=== PATIENT | female | born 1945 | race Caucasian/White ===

== ENCOUNTER 2017-07-05 15:31 | Emergency (ER) | payer OTHER ==
[~2017-07-05] VITALS: Ht 160 cm; Wt 64.0 kg
[2017-07-05 17:07] LABS: CARBON DIOXIDE (BICARBONATE) 29.1 MEQ/L (20-31); MCH 29.5 PG (29.0-34.0); MCHC 32.5 G/DL (30.0-36.0); MCV 90.7 FL (83-99); MEAN PLAT.VOLUME 9.2 uM^3 (9.5-12.4); PLATELET COUNT 202 K/uL (156-360); RBC DIS.WIDTH-SD 46.2 % (39-53); RED BLOOD COUNT 3.53 M/uL (3.80-5.20)
[2017-07-05 17:15] LABS: CHLORIDE 107 mEq/L (99-109); POTASSIUM 4.6 mEq/L (3.7-5.4); SODIUM 140 mEq/L (136-147)
[2017-07-05 17:16] LABS: GLUCOSE 100 mg/dL (70-99)
[2017-07-05 17:18] LABS: ANION GAP 11 MEQ/L (2-14)
[2017-07-05 17:20] LABS: GFR ESTIMATE (CALCULATED) 25 mL/min/
[2017-07-05 17:21] LABS: UREA NITROGEN (BUN) 27 mg/dL (9-23)
[2017-07-05 17:27] LABS: TROP-I INTERPRETATION NEGATIVE; TROPONIN-I < 0.01 ng/mL (0.0-0.30)
[2017-07-05 19:07] VITALS: BP 150/80
== END 2017-07-05 19:09 | disposition left against medical advice (07) ==
LOC: EME 15:31
PROVIDERS: Emergency Medicine
DX: I10 Essential (primary) hypertension (principal); R07.89 Other chest pain; Z53.20 Procedure and treatment not carried out because of patient's decision for unspecified reasons; F17.200 Nicotine dependence, unspecified, uncomplicated
CPT/HCPCS: 80048; 82803; 83605; 83880; 84484; 85027; 87040; 99281; 99283

== ENCOUNTER 2018-02-10 07:56 | Day surgery (SDC) | payer OTHER ==
[~2018-02-10] VITALS: Ht 154.9 cm; Wt 65.8 kg
[~2018-02-10 07:56] MED LIST: ASPIR-LOW81 MG PO; CLONIDINE HCL0.1 MG PO; HYDRALAZINE HCL50 MG PO; LABETALOL HCL200 MG PO; TRAMADOL HCL50 MG PO; VITAMIN B-12500 MC5 SL; VITAMIN D31000 UNI2 PO
== END 2018-02-10 16:43 | disposition home or self-care (01) ==
LOC: CATH 07:56
DX: I25.10 Atherosclerotic heart disease of native coronary artery without angina pectoris (principal); I25.84 Coronary atherosclerosis due to calcified coronary lesion; I10 Essential (primary) hypertension; I65.29 Occlusion and stenosis of unspecified carotid artery; Z87.891 Personal history of nicotine dependence; I34.0 Nonrheumatic mitral (valve) insufficiency; E78.2 Mixed hyperlipidemia; I71.2 Thoracic aortic aneurysm, without rupture; Z98.1 Arthrodesis status; Z79.82 Long term (current) use of aspirin
CPT/HCPCS: C1769; C1887; J1644; J2250; J3010; J7040

== ENCOUNTER 2018-03-16 02:34 | Emergency (ER) | payer OTHER ==
[~2018-03-16] VITALS: Ht 154.9 cm; Wt 67.0 kg
[2018-03-16 03:30] LABS: APPEARANCE CLEAR ((CLEAR)); BILIRUBIN NEGATIVE; BLOOD NEGATIVE; COLOR YELLOW ((YELLOW)); GLUCOSE (STRIP) NEGATIVE; KETONES NEGATIVE; LEUKOCYTES NEGATIVE; NITRITE NEGATIVE; PROTEIN (STRIP) NEGATIVE; SPECIFIC GRAVITY 1.014 (1.000-1.030); UROBILINOGEN 0.2 MG/DL (0.2-1.0)
[2018-03-16 03:51] LABS: BASOPHIL (%) 0.2 % (0-1); EOSINOPHIL COUNT 0.4 K/uL (0-0.3); HEMATOCRIT 24.8 % (36.0-46.0); HEMOGLOBIN 8.1 G/DL (11.9-15.5); IMMATURE GRANULOCYTE (%) 0.4 % (0.0-0.7); LYMPHOCYTE (%) 10.5 % (15-42); LYMPHOCYTE COUNT 1.4 K/uL (1.0-2.8); MCH 28.8 PG (29.0-34.0); MCHC 32.7 G/DL (30.0-36.0); MCV 88.3 FL (83-99); MONOCYTE (%) 6.6 % (3-12); MONOCYTE COUNT 0.9 K/uL (0-0.8); NEUTROPHIL (%) 79.3 % (45-76); NEUTROPHIL COUNT 10.7 K/uL (1.8-6.4); PLATELET COUNT 134 K/uL (156-360); RBC DIS.WIDTH-CV 14.6 % (11.8-14.6); RBC DIS.WIDTH-SD 47.1 % (39-53); RED BLOOD COUNT 2.81 M/uL (3.80-5.20); WHITE BLOOD COUNT 13.5 K/uL (4.1-10.2)
[2018-03-16 03:57] LABS: INTER. NORMALIZED RATIO 1.2
[2018-03-16 04:00] LABS: ALBUMIN 3.9 g/dL (3.2-4.8); CHLORIDE 104 mEq/L (99-109); POTASSIUM 3.6 mEq/L (3.7-5.4); SODIUM 137 mEq/L (136-147)
[2018-03-16 04:02] LABS: GLUCOSE 118 mg/dL (70-99)
[2018-03-16 04:04] LABS: TOTAL BILIRUBIN 0.8 mg/dL (0.0-1.0)
[2018-03-16 04:06] LABS: ALKALINE PHOSPHATASE 61 IU/L (3-129); CREATININE 2.2 mg/dL (0.6-1.3); GFR ESTIMATE (CALCULATED) 23 mL/min/
[2018-03-16 04:07] LABS: UREA NITROGEN (BUN) 35 mg/dL (9-23)
[2018-03-16 04:08] LABS: AST (GOT) 26 IU/L (2-34)
[2018-03-16 04:09] LABS: ALT (GPT) 12 IU/L (3-49); LIPASE 19 U/L (1.0-51.0)
[2018-03-16 08:06] VITALS: BP 156/76
== END 2018-03-16 08:18 | disposition short-term general hospital (02) ==
LOC: EME 02:34
PROVIDERS: Emergency Medicine
DX: I71.4 Abdominal aortic aneurysm, without rupture (principal); I16.1 Hypertensive emergency; I12.9 Hypertensive chronic kidney disease with stage 1 through stage 4 chronic kidney disease, or unspecified chronic kidney disease; N18.9 Chronic kidney disease, unspecified; I73.9 Peripheral vascular disease, unspecified; I25.10 Atherosclerotic heart disease of native coronary artery without angina pectoris; Z98.890 Other specified postprocedural states; Z95.5 Presence of coronary angioplasty implant and graft; Z79.82 Long term (current) use of aspirin; Z87.891 Personal history of nicotine dependence; Z90.49 Acquired absence of other specified parts of digestive tract; Z87.39 Personal history of other diseases of the musculoskeletal system and connective tissue
CPT/HCPCS: 74176; 80053; 81003; 83605; 83690; 85025; 85610; 86850; 86900; 86901; 86920; 93005; 99281; 99285; J0360; J2270; J2405; J3010

== ENCOUNTER 2018-04-07 03:36 | Inpatient (IN) | payer OTHER ==
[~2018-04-07] VITALS: Ht 154.9 cm; Wt 72.0 kg
[~2018-04-07 03:36] MED LIST changes: +AMLODIPINE BESYL5 MG PO; +ATORVASTATIN CA80 MG PO; +BUSPAR5 MG PO; +CALCITRIOL0.25 MCG PO; +CLOPIDOGREL75 MG PO; +PROTONIX40 MG PO
[2018-04-07 04:01] LABS: MCH 29.9 PG (29.0-34.0); MCHC 33.1 G/DL (30.0-36.0); PLATELET COUNT 141 K/uL (156-360); RBC DIS.WIDTH-CV 16.7 % (11.8-14.6); RBC DIS.WIDTH-SD 55.6 % (39-53); WHITE BLOOD COUNT 6.8 K/uL (4.1-10.2)
[2018-04-07 04:02] LABS: HEMOGLOBIN 9.6 G/DL (11.9-15.5); MCV 90.3 FL (83-99); RED BLOOD COUNT 3.21 M/uL (3.80-5.20)
[2018-04-07 04:11] LABS: CHLORIDE 107 mEq/L (99-109); POTASSIUM 3.1 mEq/L (3.7-5.4); SODIUM 140 mEq/L (136-147)
[2018-04-07 04:12] LABS: GLUCOSE 119 mg/dL (70-99)
[2018-04-07 04:16] LABS: CREATININE 2.7 mg/dL (0.6-1.3); GFR ESTIMATE (CALCULATED) 18 mL/min/
[2018-04-07 04:17] LABS: UREA NITROGEN (BUN) 42 mg/dL (9-23)
[2018-04-07 04:25] LABS: TROP-I INTERPRETATION NEGATIVE; TROPONIN-I 0.04 ng/mL (0.0-0.30)
[2018-04-07] MEDS ORDERED: HYGROTON25 MG PO (06:18)
[2018-04-07] MEDS ORDERED: ROXICODONE5 MG PO (06:19)
[2018-04-07 09:41] VITALS: BP 210/84
[2018-04-07 11:05] LABS: TROP-I INTERPRETATION NEGATIVE; TROPONIN-I 0.04 ng/mL (0.0-0.30)
[2018-04-07 11:15] VITALS: BP 179/77
[2018-04-07 14:45] VITALS: BP 183/79
[2018-04-07 16:21] LABS: TROP-I INTERPRETATION NEGATIVE; TROPONIN-I 0.04 ng/mL (0.0-0.30)
[2018-04-07 17:59] VITALS: BP 136/64
[2018-04-07 20:00] VITALS: BP 128/56
[2018-04-07 22:21] LABS: TROP-I INTERPRETATION NEGATIVE; TROPONIN-I 0.05 ng/mL (0.0-0.30)
[2018-04-08 01:02] VITALS: BP 123/58
[2018-04-08 04:59] VITALS: BP 114/55
[2018-04-08 05:16] LABS: BASOPHIL (%) 0.9 % (0-1); BASOPHIL COUNT 0.1 K/uL (0-0.1); EOSINOPHIL COUNT 0.3 K/uL (0-0.3); HEMATOCRIT 27.2 % (36.0-46.0); HEMOGLOBIN 8.7 G/DL (11.9-15.5); IMMATURE GRANULOCYTE (%) 0.7 % (0.0-0.7); LYMPHOCYTE (%) 20.6 % (15-42); LYMPHOCYTE COUNT 1.2 K/uL (1.0-2.8); MCV 90.7 FL (83-99); MONOCYTE (%) 7.9 % (3-12); MONOCYTE COUNT 0.4 K/uL (0-0.8); NEUTROPHIL (%) 64.9 % (45-76); NEUTROPHIL COUNT 3.6 K/uL (1.8-6.4); PLATELET COUNT 135 K/uL (156-360); RBC DIS.WIDTH-CV 16.8 % (11.8-14.6); WHITE BLOOD COUNT 5.6 K/uL (4.1-10.2)
[2018-04-08 05:36] LABS: ALBUMIN 3.4 G/DL (3.2-4.8); ALKALINE PHOSPHATASE 64 IU/L (3-129); ALT (GPT) 8 IU/L (3-49); AST (GOT) 15 IU/L (2-34); CHLORIDE 106 MEQ/L (99-109); CREATININE 2.9 MG/DL (0.6-1.3); GFR ESTIMATE (CALCULATED) 17 mL/min/; GLUCOSE 116 mg/dL (70-99); POTASSIUM 3.5 MEQ/L (3.7-5.4); SODIUM 141 MEQ/L (136-147); TOTAL BILIRUBIN 1.6 MG/DL (0.0-1.0); UREA NITROGEN (BUN) 44 mg/dL (9-23)
[2018-04-08 09:00] VITALS: BP 133/58
[2018-04-08 12:00] VITALS: BP 118/56
[2018-04-08 12:16] LABS: INTER. NORMALIZED RATIO 1.3
[2018-04-08 12:19] LABS: PTT 34.8 SEC (25-37)
[2018-04-08 16:18] VITALS: BP 142/61
[2018-04-08 20:38] VITALS: BP 116/57
[2018-04-09 01:21] VITALS: BP 137/63
[2018-04-09 05:02] VITALS: BP 146/65
[2018-04-09 09:05] LABS: HEMATOCRIT 28.1 % (36.0-46.0); MCH 29.1 PG (29.0-34.0); MCV 90.9 FL (83-99); PLATELET COUNT 140 K/uL (156-360); RBC DIS.WIDTH-CV 16.9 % (11.8-14.6); RBC DIS.WIDTH-SD 56.4 % (39-53); RED BLOOD COUNT 3.09 M/uL (3.80-5.20); WHITE BLOOD COUNT 5.7 K/uL (4.1-10.2)
[2018-04-09 09:27] VITALS: BP 157/67
[2018-04-09 10:22] LABS: CHLORIDE 107 MEQ/L (99-109); GFR ESTIMATE (CALCULATED) 14 mL/min/; GLUCOSE 117 mg/dL (70-99); SODIUM 141 MEQ/L (136-147); UREA NITROGEN (BUN) 45 mg/dL (9-23)
[2018-04-09 10:23] LABS: CREATININE 3.4 MG/DL (0.6-1.3)
[2018-04-09 11:17] VITALS: BP 134/61
[2018-04-09 15:46] VITALS: BP 166/72
[2018-04-09 20:18] VITALS: BP 137/54
[2018-04-10 00:39] VITALS: BP 157/69
[2018-04-10 04:30] VITALS: BP 157/69
[2018-04-10 04:57] LABS: BASOPHIL (%) 0.7 % (0-1); EOSINOPHIL (%) 4.2 % (0-5); EOSINOPHIL COUNT 0.3 K/uL (0-0.3); HEMATOCRIT 28.1 % (36.0-46.0); HEMOGLOBIN 8.9 G/DL (11.9-15.5); IMMATURE GRANULOCYTE (%) 0.8 % (0.0-0.7); LYMPHOCYTE (%) 23.5 % (15-42); LYMPHOCYTE COUNT 1.4 K/uL (1.0-2.8); MCH 29.6 PG (29.0-34.0); MCHC 31.7 G/DL (30.0-36.0); MCV 93.4 FL (83-99); MONOCYTE (%) 7.6 % (3-12); MONOCYTE COUNT 0.5 K/uL (0-0.8); NEUTROPHIL (%) 63.2 % (45-76); NEUTROPHIL COUNT 3.7 K/uL (1.8-6.4); PLATELET COUNT 128 K/uL (156-360); RBC DIS.WIDTH-CV 16.8 % (11.8-14.6); RBC DIS.WIDTH-SD 57.3 % (39-53); RED BLOOD COUNT 3.01 M/uL (3.80-5.20); WHITE BLOOD COUNT 5.9 K/uL (4.1-10.2)
[2018-04-10 05:27] LABS: CHLORIDE 108 MEQ/L (99-109); CREATININE 3.5 MG/DL (0.6-1.3); GFR ESTIMATE (CALCULATED) 14 mL/min/; GLUCOSE 113 mg/dL (70-99); SODIUM 140 MEQ/L (136-147); UREA NITROGEN (BUN) 43 mg/dL (9-23)
[2018-04-10 07:31] VITALS: BP 192/78
[2018-04-10 10:52] LABS: RENIN ACTIVITY 2.38 ng/mL/h (0.25-5.82)
[2018-04-10 11:34] VITALS: BP 173/72
[2018-04-10 16:02] VITALS: BP 157/71
[2018-04-10 20:26] VITALS: BP 161/67
[2018-04-11] VITALS (7 sets, daily range): BP systolic 164–181; BP diastolic 71–77
[2018-04-11 05:34] LABS: BASOPHIL (%) 0.9 % (0-1); BASOPHIL COUNT 0.1 K/uL (0-0.1); EOSINOPHIL (%) 5.1 % (0-5); EOSINOPHIL COUNT 0.3 K/uL (0-0.3); HEMATOCRIT 28.3 % (36.0-46.0); HEMOGLOBIN 8.9 G/DL (11.9-15.5); IMMATURE GRANULOCYTE (%) 1.2 % (0.0-0.7); LYMPHOCYTE (%) 21.9 % (15-42); LYMPHOCYTE COUNT 1.2 K/uL (1.0-2.8); MCH 29.1 PG (29.0-34.0); MCHC 31.4 G/DL (30.0-36.0); MCV 92.5 FL (83-99); MONOCYTE COUNT 0.5 K/uL (0-0.8); NEUTROPHIL (%) 62.9 % (45-76); NEUTROPHIL COUNT 3.6 K/uL (1.8-6.4); PLATELET COUNT 125 K/uL (156-360); RBC DIS.WIDTH-CV 16.6 % (11.8-14.6); RBC DIS.WIDTH-SD 56.5 % (39-53); RED BLOOD COUNT 3.06 M/uL (3.80-5.20); WHITE BLOOD COUNT 5.7 K/uL (4.1-10.2)
[2018-04-11 05:51] LABS: CHLORIDE 107 MEQ/L (99-109); CREATININE 3.1 MG/DL (0.6-1.3); GFR ESTIMATE (CALCULATED) 16 mL/min/; GLUCOSE 103 mg/dL (70-99); POTASSIUM 3.6 MEQ/L (3.7-5.4); SODIUM 141 MEQ/L (136-147); UREA NITROGEN (BUN) 41 mg/dL (9-23)
[2018-04-12 05:00] VITALS: BP 178/72
[2018-04-12 05:38] LABS: BASOPHIL COUNT 0.1 K/uL (0-0.1); EOSINOPHIL (%) 5.5 % (0-5); EOSINOPHIL COUNT 0.3 K/uL (0-0.3); HEMOGLOBIN 8.6 G/DL (11.9-15.5); LYMPHOCYTE (%) 24.1 % (15-42); LYMPHOCYTE COUNT 1.5 K/uL (1.0-2.8); MCH 29.2 PG (29.0-34.0); MCHC 31.9 G/DL (30.0-36.0); MCV 91.5 FL (83-99); MONOCYTE COUNT 0.5 K/uL (0-0.8); NEUTROPHIL (%) 60.4 % (45-76); NEUTROPHIL COUNT 3.6 K/uL (1.8-6.4); PLATELET COUNT 117 K/uL (156-360); RBC DIS.WIDTH-CV 16.3 % (11.8-14.6); RBC DIS.WIDTH-SD 55.8 % (39-53); RED BLOOD COUNT 2.95 M/uL (3.80-5.20)
[2018-04-12 05:57] LABS: CHLORIDE 105 MEQ/L (99-109); CREATININE 3.1 MG/DL (0.6-1.3); GFR ESTIMATE (CALCULATED) 16 mL/min/; GLUCOSE 106 mg/dL (70-99); POTASSIUM 3.5 MEQ/L (3.7-5.4); SODIUM 141 MEQ/L (136-147); UREA NITROGEN (BUN) 40 mg/dL (9-23)
[2018-04-12 07:58] VITALS: BP 186/76
[2018-04-12 08:03] LABS: ALBUMIN 3.5 G/DL (3.2-4.8); ALKALINE PHOSPHATASE 67 IU/L (3-129); ALT (GPT) 10 IU/L (3-49); AST (GOT) 20 IU/L (2-34); DIRECT BILIRUBIN 0.3 mg/dL (0.0-0.3); MAGNESIUM 1.7 mg/dl (1.3-2.7); TOTAL PROTEIN 6.1 G/DL (6.4-8.3)
[2018-04-12 11:56] VITALS: BP 148/67
[2018-04-12 16:02] VITALS: BP 177/73
[2018-04-12 19:00] VITALS: BP 188/77
[2018-04-12 23:47] VITALS: BP 144/61
[2018-04-13 04:47] VITALS: BP 176/84
[2018-04-13 05:41] LABS: BASOPHIL COUNT 0.1 K/uL (0-0.1); EOSINOPHIL (%) 5.3 % (0-5); EOSINOPHIL COUNT 0.3 K/uL (0-0.3); HEMATOCRIT 27.6 % (36.0-46.0); HEMOGLOBIN 8.8 G/DL (11.9-15.5); LYMPHOCYTE (%) 23.8 % (15-42); LYMPHOCYTE COUNT 1.4 K/uL (1.0-2.8); MCH 29.1 PG (29.0-34.0); MCHC 31.9 G/DL (30.0-36.0); MCV 91.4 FL (83-99); MONOCYTE (%) 7.6 % (3-12); MONOCYTE COUNT 0.5 K/uL (0-0.8); NEUTROPHIL (%) 61.3 % (45-76); NEUTROPHIL COUNT 3.7 K/uL (1.8-6.4); PLATELET COUNT 119 K/uL (156-360); RBC DIS.WIDTH-CV 16.1 % (11.8-14.6); RBC DIS.WIDTH-SD 54.3 % (39-53); RED BLOOD COUNT 3.02 M/uL (3.80-5.20)
[2018-04-13 06:03] LABS: ALBUMIN 3.5 G/DL (3.2-4.8); CHLORIDE 105 MEQ/L (99-109); CREATININE 3.1 MG/DL (0.6-1.3); GFR ESTIMATE (CALCULATED) 16 mL/min/; GLUCOSE 114 mg/dL (70-99); PHOSPHORUS 2.8 mg/dL (2.5-4.9); POTASSIUM 3.5 MEQ/L (3.7-5.4); SODIUM 141 MEQ/L (136-147); UREA NITROGEN (BUN) 36 mg/dL (9-23)
[2018-04-13 09:00] VITALS: BP 159/74
[2018-04-13 14:32] VITALS: BP 178/75
[2018-04-13 19:15] VITALS: BP 168/72
[2018-04-14 00:30] VITALS: BP 152/67
[2018-04-14 04:09] VITALS: BP 149/65
[2018-04-14 06:01] LABS: ALBUMIN 3.6 G/DL (3.2-4.8); CHLORIDE 107 MEQ/L (99-109); CREATININE 3.1 MG/DL (0.6-1.3); GFR ESTIMATE (CALCULATED) 16 mL/min/; GLUCOSE 142 mg/dL (70-99); PHOSPHORUS 2.3 mg/dL (2.5-4.9); POTASSIUM 3.8 MEQ/L (3.7-5.4); SODIUM 141 MEQ/L (136-147); UREA NITROGEN (BUN) 36 mg/dL (9-23)
[2018-04-14] MEDS ORDERED: SPIRONOLACTONE25 MG PO (10:27)
[2018-04-14] MEDS ORDERED: LASIX20 MG PO (10:29)
[2018-04-14] MEDS ORDERED: LYRICA25 MG PO (10:30)
== END 2018-04-14 11:42 | disposition home or self-care (01) | DRG 683 ==
LOC: EME 03:36 → 4EAST 08:11 → 4SOUTH 08:11 → EDOF 08:11 → ENRESERV 08:15 → 4EAST 09:29 → ENRESERV 04-09 16:30 → 4SOUTH 04-09 20:07
PROVIDERS: Emergency Medicine; Hospitalist; Internal Medicine Nephrology
DX: I12.9 Hypertensive chronic kidney disease with stage 1 through stage 4 chronic kidney disease, or unspecified chronic kidney disease (principal); N18.4 Chronic kidney disease, stage 4 (severe); E87.70 Fluid overload, unspecified; R09.89 Other specified symptoms and signs involving the circulatory and respiratory systems; N17.9 Acute kidney failure, unspecified; D63.1 Anemia in chronic kidney disease; I25.10 Atherosclerotic heart disease of native coronary artery without angina pectoris; E78.5 Hyperlipidemia, unspecified; E87.6 Hypokalemia; D69.6 Thrombocytopenia, unspecified; I73.9 Peripheral vascular disease, unspecified; M79.604 Pain in right leg; Z79.02 Long term (current) use of antithrombotics/antiplatelets; Z87.891 Personal history of nicotine dependence; Z79.82 Long term (current) use of aspirin; Z95.5 Presence of coronary angioplasty implant and graft; Z91.19 Patient's noncompliance with other medical treatment and regimen
CPT/HCPCS: 71046; 76770; 78582; 80048; 80053; 80069; 80076; 81003; 82088 90; 83735; 83880; 84244 90; 84484; 85025; 85027; 85379; 85610; 85730; 93005; 93306; 93970; 93975; 94640; 99202; 99281; 99285; A9540; A9567; J0360; J1644; J1940; J2405

== ENCOUNTER 2018-04-23 19:39 | Inpatient (IN) | payer OTHER ==
[~2018-04-23] VITALS: Ht 154.9 cm; Wt 59.7 kg
[~2018-04-23 19:39] MED LIST changes: +HYGROTON25 MG PO; +LASIX20 MG PO; +LYRICA25 MG PO; +ROXICODONE5 MG PO; +SPIRONOLACTONE25 MG PO
[2018-04-23 20:19] LABS: HEMATOCRIT 30.6 % (36.0-46.0); HEMOGLOBIN 10.3 G/DL (11.9-15.5); MCH 29.7 PG (29.0-34.0); MCHC 33.7 G/DL (30.0-36.0); MCV 88.2 FL (83-99); PLATELET COUNT 153 K/uL (156-360); RBC DIS.WIDTH-CV 15.9 % (11.8-14.6); RBC DIS.WIDTH-SD 51.5 % (39-53); RED BLOOD COUNT 3.47 M/uL (3.80-5.20); WHITE BLOOD COUNT 11.8 K/uL (4.1-10.2)
[2018-04-23 20:48] LABS: ALBUMIN 4.1 g/dL (3.2-4.8); CHLORIDE 98 mEq/L (99-109); POTASSIUM 3.3 mEq/L (3.7-5.4); SODIUM 135 mEq/L (136-147)
[2018-04-23 20:51] LABS: TOTAL PROTEIN 8.3 g/dL (6.4-8.3)
[2018-04-23 20:52] LABS: TOTAL BILIRUBIN 0.9 mg/dL (0.0-1.0)
[2018-04-23 20:54] LABS: ALKALINE PHOSPHATASE 106 IU/L (3-129); CREATININE 4.3 mg/dL (0.6-1.3); GFR ESTIMATE (CALCULATED) 11 mL/min/; GLUCOSE 116 mg/dL (70-99)
[2018-04-23 20:55] LABS: UREA NITROGEN (BUN) 52 mg/dL (9-23)
[2018-04-23 20:56] LABS: AST (GOT) 26 IU/L (2-34)
[2018-04-23 20:57] LABS: ALT (GPT) 21 IU/L (3-49)
[2018-04-23 20:58] LABS: LIPASE 40 U/L (1.0-51.0)
[2018-04-23 21:40] LABS: MAGNESIUM 1.9 mg/dL (1.3-2.7)
[2018-04-24 01:02] LABS: APPEARANCE CLEAR ((CLEAR)); BILIRUBIN NEGATIVE; BLOOD NEGATIVE; COLOR YELLOW ((YELLOW)); GLUCOSE (STRIP) NEGATIVE; KETONES NEGATIVE; LEUKOCYTES NEGATIVE; NITRITE NEGATIVE; PROTEIN (STRIP) 100; SPECIFIC GRAVITY 1.014 (1.000-1.030); UROBILINOGEN 0.2 MG/DL (0.2-1.0)
[2018-04-24 01:17] LABS: BACTERIA RARE /HPF; EPITHELIAL CELLS RARE /HPF; HYALINE CASTS 0-5 /LPF; MUCUS TRACE /LPF; RED BLOOD CELLS 0-5 /HPF (0-5); UCUL ADDED? NO; WHITE BLOOD CELLS 0-5 /HPF (0-5)
[2018-04-24 04:00] VITALS: BP 167/78
[2018-04-24 05:01] VITALS: BP 145/78
[2018-04-24 06:25] LABS: BASOPHIL (%) 0.8 % (0-1); BASOPHIL COUNT 0.1 K/uL (0-0.1); EOSINOPHIL (%) 2.5 % (0-5); EOSINOPHIL COUNT 0.3 K/uL (0-0.3); HEMATOCRIT 28.7 % (36.0-46.0); HEMOGLOBIN 9.4 G/DL (11.9-15.5); IMMATURE GRANULOCYTE (%) 1.2 % (0.0-0.7); LYMPHOCYTE (%) 17.9 % (15-42); LYMPHOCYTE COUNT 1.8 K/uL (1.0-2.8); MCHC 32.8 G/DL (30.0-36.0); MCV 88.6 FL (83-99); MONOCYTE COUNT 0.8 K/uL (0-0.8); NEUTROPHIL (%) 69.6 % (45-76); NEUTROPHIL COUNT 7.1 K/uL (1.8-6.4); PLATELET COUNT 137 K/uL (156-360); RBC DIS.WIDTH-CV 15.7 % (11.8-14.6); RBC DIS.WIDTH-SD 50.8 % (39-53); RED BLOOD COUNT 3.24 M/uL (3.80-5.20); WHITE BLOOD COUNT 10.2 K/uL (4.1-10.2)
[2018-04-24 06:45] LABS: CHLORIDE 103 MEQ/L (99-109); CREATININE 3.8 MG/DL (0.6-1.3); GFR ESTIMATE (CALCULATED) 12 mL/min/; GLUCOSE 121 mg/dL (70-99); POTASSIUM 3.4 MEQ/L (3.7-5.4); SODIUM 137 MEQ/L (136-147); UREA NITROGEN (BUN) 48 mg/dL (9-23)
[2018-04-24 07:30] VITALS: BP 166/70
[2018-04-24 12:16] VITALS: BP 189/81
[2018-04-24 16:22] VITALS: BP 156/67
[2018-04-24 19:52] VITALS: BP 120/53
[2018-04-25] VITALS (7 sets, daily range): BP systolic 107–127; BP diastolic 53–74
[2018-04-25 02:15] LABS: UR CREATININE CONCENTRATION 130.6 MG/DL
[2018-04-25 07:52] LABS: BASOPHIL (%) 0.6 % (0-1); BASOPHIL COUNT 0.1 K/uL (0-0.1); EOSINOPHIL (%) 3.8 % (0-5); EOSINOPHIL COUNT 0.4 K/uL (0-0.3); HEMATOCRIT 25.4 % (36.0-46.0); HEMOGLOBIN 8.2 G/DL (11.9-15.5); IMMATURE GRANULOCYTE (%) 0.6 % (0.0-0.7); LYMPHOCYTE (%) 23.8 % (15-42); LYMPHOCYTE COUNT 2.2 K/uL (1.0-2.8); MCH 29.2 PG (29.0-34.0); MCHC 32.3 G/DL (30.0-36.0); MCV 90.4 FL (83-99); MONOCYTE (%) 8.3 % (3-12); MONOCYTE COUNT 0.8 K/uL (0-0.8); NEUTROPHIL (%) 62.9 % (45-76); NEUTROPHIL COUNT 5.9 K/uL (1.8-6.4); PLATELET COUNT 150 K/uL (156-360); RBC DIS.WIDTH-CV 16.2 % (11.8-14.6); RBC DIS.WIDTH-SD 53.8 % (39-53); RED BLOOD COUNT 2.81 M/uL (3.80-5.20); WHITE BLOOD COUNT 9.3 K/uL (4.1-10.2)
[2018-04-25 08:22] LABS: CHLORIDE 106 MEQ/L (99-109); GFR ESTIMATE (CALCULATED) 12 mL/min/; GLUCOSE 107 mg/dL (70-99); MAGNESIUM 1.8 mg/dl (1.3-2.7); SODIUM 138 MEQ/L (136-147); UREA NITROGEN (BUN) 50 mg/dL (9-23)
[2018-04-25 08:23] LABS: POTASSIUM 4.5 MEQ/L (3.7-5.4)
[2018-04-26] VITALS (7 sets, daily range): BP systolic 114–144; BP diastolic 57–70
[2018-04-26 07:14] LABS: BASOPHIL (%) 0.7 % (0-1); BASOPHIL COUNT 0.1 K/uL (0-0.1); EOSINOPHIL (%) 3.7 % (0-5); EOSINOPHIL COUNT 0.3 K/uL (0-0.3); HEMATOCRIT 24.4 % (36.0-46.0); HEMOGLOBIN 7.8 G/DL (11.9-15.5); IMMATURE GRANULOCYTE (%) 0.6 % (0.0-0.7); LYMPHOCYTE (%) 21.3 % (15-42); LYMPHOCYTE COUNT 1.8 K/uL (1.0-2.8); MCH 29.3 PG (29.0-34.0); MCV 91.7 FL (83-99); MONOCYTE (%) 7.2 % (3-12); MONOCYTE COUNT 0.6 K/uL (0-0.8); NEUTROPHIL (%) 66.5 % (45-76); NEUTROPHIL COUNT 5.8 K/uL (1.8-6.4); PLATELET COUNT 137 K/uL (156-360); RBC DIS.WIDTH-CV 16.4 % (11.8-14.6); RBC DIS.WIDTH-SD 55.5 % (39-53); RED BLOOD COUNT 2.66 M/uL (3.80-5.20); WHITE BLOOD COUNT 8.7 K/uL (4.1-10.2)
[2018-04-26 07:37] LABS: CHLORIDE 108 MEQ/L (99-109); CREATININE 4.2 MG/DL (0.6-1.3); GFR ESTIMATE (CALCULATED) 11 mL/min/; GLOBULINS 2.9 G/DL (2.3-3.5); GLUCOSE 110 mg/dL (70-99); POTASSIUM 4.1 MEQ/L (3.7-5.4); SODIUM 140 MEQ/L (136-147); TOTAL PROTEIN 5.9 G/DL (6.4-8.2); UREA NITROGEN (BUN) 51 mg/dL (9-23)
[2018-04-27 03:40] VITALS: BP 131/63
[2018-04-27 06:11] LABS: HEMATOCRIT 23.6 % (36.0-46.0); HEMOGLOBIN 7.4 G/DL (11.9-15.5); MCH 29.4 PG (29.0-34.0); MCHC 31.4 G/DL (30.0-36.0); MCV 93.7 FL (83-99); PLATELET COUNT 130 K/uL (156-360); RBC DIS.WIDTH-CV 16.6 % (11.8-14.6); RED BLOOD COUNT 2.52 M/uL (3.80-5.20); WHITE BLOOD COUNT 8.7 K/uL (4.1-10.2)
[2018-04-27 06:32] LABS: CHLORIDE 112 MEQ/L (99-109); POTASSIUM 4.2 MEQ/L (3.7-5.4); SODIUM 140 MEQ/L (136-147)
[2018-04-27 06:38] LABS: CREATININE 4.2 MG/DL (0.6-1.3); GFR ESTIMATE (CALCULATED) 11 mL/min/; GLUCOSE 108 mg/dL (70-99); UREA NITROGEN (BUN) 51 mg/dL (9-23)
[2018-04-27 08:30] VITALS: BP 132/62
[2018-04-27 09:14] LABS: IRON 43 MCG/DL (35-150); TRANSFERRIN (TIBC) 165.1 mg/dL (215-380); TRANSFERRIN SATUR. 26 % (20-55)
[2018-04-27 10:06] LABS: FERRITIN 623 NG/ML (10-291)
[2018-04-27 11:44] VITALS: BP 128/59
[2018-04-27 16:11] VITALS: BP 142/65
[2018-04-27] MEDS ORDERED: CHLORTHALIDONE25 MG PO (16:58)
[2018-04-27] MEDS ORDERED: LYRICA25 MG PO (17:01)
[2018-04-27] MEDS ORDERED: TYLENOL REGULA325 MG PO (17:02)
[2018-04-27] MEDS ORDERED: LASIX20 MG PO (17:02)
[2018-04-27] MEDS ORDERED: VITAMIN D2000 UNI1 PO (17:03)
[2018-04-27 19:24] VITALS: BP 135/65
[2018-04-28] VITALS (12 sets, daily range): BP systolic 102–166; BP diastolic 55–71
[2018-04-28 06:36] LABS: HEMATOCRIT 22.6 % (36.0-46.0); HEMOGLOBIN 7.1 G/DL (11.9-15.5); MCHC 31.4 G/DL (30.0-36.0); MCV 92.2 FL (83-99); PLATELET COUNT 131 K/uL (156-360); RBC DIS.WIDTH-CV 16.7 % (11.8-14.6); RBC DIS.WIDTH-SD 56.9 % (39-53); RED BLOOD COUNT 2.45 M/uL (3.80-5.20); WHITE BLOOD COUNT 12.8 K/uL (4.1-10.2)
[2018-04-28 07:00] LABS: ALBUMIN 2.9 G/DL (3.2-4.8); CHLORIDE 114 MEQ/L (99-109); CREATININE 4.1 MG/DL (0.6-1.3); GFR ESTIMATE (CALCULATED) 11 mL/min/; GLUCOSE 136 mg/dL (70-99); PHOSPHORUS 3.5 mg/dL (2.5-4.9); POTASSIUM 4.1 MEQ/L (3.7-5.4); SODIUM 140 MEQ/L (136-147); UREA NITROGEN (BUN) 50 mg/dL (9-23)
[2018-04-28 09:18] LABS: HEMATOCRIT 22.8 % (36.0-46.0); HEMOGLOBIN 7.3 G/DL (11.9-15.5); MCV 93.4 FL (83-99)
[2018-04-28 12:55] LABS: Neutrophil Cytoplasmic Aby Negative
[2018-04-29] VITALS (8 sets, daily range): BP systolic 133–167; BP diastolic 57–88
[2018-04-29 06:33] LABS: BASOPHIL (%) 0.4 % (0-1); EOSINOPHIL (%) 1.1 % (0-5); EOSINOPHIL COUNT 0.1 K/uL (0-0.3); HEMATOCRIT 29.9 % (36.0-46.0); IMMATURE GRANULOCYTE (%) 1.2 % (0.0-0.7); LYMPHOCYTE (%) 13.5 % (15-42); LYMPHOCYTE COUNT 1.5 K/uL (1.0-2.8); MCH 29.4 PG (29.0-34.0); MCHC 32.1 G/DL (30.0-36.0); MCV 91.4 FL (83-99); MONOCYTE (%) 6.5 % (3-12); MONOCYTE COUNT 0.7 K/uL (0-0.8); NEUTROPHIL (%) 77.3 % (45-76); NEUTROPHIL COUNT 8.3 K/uL (1.8-6.4); PLATELET COUNT 138 K/uL (156-360); RBC DIS.WIDTH-CV 17.2 % (11.8-14.6); RBC DIS.WIDTH-SD 57.7 % (39-53); WHITE BLOOD COUNT 10.8 K/uL (4.1-10.2)
[2018-04-29 06:37] LABS: HEMOGLOBIN 9.6 G/DL (11.9-15.5); RED BLOOD COUNT 3.27 M/uL (3.80-5.20)
[2018-04-29 06:43] LABS: ALBUMIN 2.9 G/DL (3.2-4.8); ALKALINE PHOSPHATASE 95 IU/L (3-129); ALT (GPT) 10 IU/L (3-49); AST (GOT) 16 IU/L (2-34); CHLORIDE 113 MEQ/L (99-109); CREATININE 4.1 MG/DL (0.6-1.3); DIRECT BILIRUBIN 0.3 mg/dL (0.0-0.3); GFR ESTIMATE (CALCULATED) 11 mL/min/; GLUCOSE 119 mg/dL (70-99); PHOSPHORUS 3.7 mg/dL (2.5-4.9); POTASSIUM 3.3 MEQ/L (3.7-5.4); SODIUM 142 MEQ/L (136-147); TOTAL BILIRUBIN 0.8 MG/DL (0.0-1.0); UREA NITROGEN (BUN) 53 mg/dL (9-23)
[2018-04-29 06:57] LABS: TOTAL PROTEIN 5.9 G/DL (6.4-8.3)
[2018-04-30 04:00] VITALS: BP 128/64
[2018-04-30 04:59] VITALS: BP 141/66
[2018-04-30 06:38] LABS: BASOPHIL (%) 0.6 % (0-1); BASOPHIL COUNT 0.1 K/uL (0-0.1); EOSINOPHIL (%) 2.4 % (0-5); EOSINOPHIL COUNT 0.2 K/uL (0-0.3); HEMOGLOBIN 9.5 G/DL (11.9-15.5); LYMPHOCYTE (%) 17.8 % (15-42); LYMPHOCYTE COUNT 1.7 K/uL (1.0-2.8); MCH 28.6 PG (29.0-34.0); MCHC 31.7 G/DL (30.0-36.0); MCV 90.4 FL (83-99); MONOCYTE (%) 5.7 % (3-12); MONOCYTE COUNT 0.5 K/uL (0-0.8); NEUTROPHIL (%) 71.5 % (45-76); NEUTROPHIL COUNT 6.6 K/uL (1.8-6.4); PLATELET COUNT 156 K/uL (156-360); RBC DIS.WIDTH-CV 17.5 % (11.8-14.6); RBC DIS.WIDTH-SD 58.4 % (39-53); RED BLOOD COUNT 3.32 M/uL (3.80-5.20); WHITE BLOOD COUNT 9.3 K/uL (4.1-10.2)
[2018-04-30 06:58] LABS: ALBUMIN 2.9 G/DL (3.2-4.8); CHLORIDE 111 MEQ/L (99-109); CREATININE 4.2 MG/DL (0.6-1.3); GFR ESTIMATE (CALCULATED) 11 mL/min/; GLUCOSE 103 mg/dL (70-99); PHOSPHORUS 3.3 mg/dL (2.5-4.9); POTASSIUM 3.4 MEQ/L (3.7-5.4); SODIUM 143 MEQ/L (136-147); UREA NITROGEN (BUN) 52 mg/dL (9-23)
[2018-04-30 08:13] VITALS: BP 137/58
[2018-04-30 12:20] VITALS: BP 137/59
[2018-04-30] MEDS ORDERED: AMLODIPINE BESYL5 MG PO (14:39)
[2018-04-30] MEDS ORDERED: NABI650T PO (14:39)
[2018-04-30] MEDS ORDERED: FAMOTIDINE20 MG PO (14:39)
[2018-04-30] MEDS ORDERED: DOCUSATE SODIU100 MG PO (14:40)
[2018-04-30 14:48] LABS: ALBUMIN 2.88 G/DL (3.6-4.9); ALPHA-1 GLOBULIN 0.53 G/DL (0.15-0.40); ALPHA-2 GLOBULIN 0.68 G/DL (0.45-0.85); BETA-GLOBULIN 0.62 G/DL (0.65-1.15); GAMMA-GLOBULIN 1.19 G/DL (0.60-1.35)
== END 2018-04-30 16:06 | disposition home or self-care (01) | DRG 683 ==
LOC: EME 19:39 → RME 19:39 → EDOF 04-24 01:58 → 2EASTP 04-24 01:58 → EDOF 04-24 01:58 → CANRESERV 04-24 02:05 → ENRESERV 04-24 02:05 → 2EASTP 04-24 02:06 → ENRESERV 04-24 02:15 → 2EASTP 04-24 03:14
PROVIDERS: Hospitalist; Internal Medicine; Internal Medicine Nephrology; Physician Assistant
PROC: 30233N1 Transfusion of Nonautologous Red Blood Cells into Peripheral Vein, Percutaneous Approach (ICD-10-PCS; principal; 2018-04-28)
DX: N17.9 Acute kidney failure, unspecified (principal); R10.11 Right upper quadrant pain; E86.0 Dehydration; E87.2 Acidosis; E87.6 Hypokalemia; L76.32 Postprocedural hematoma of skin and subcutaneous tissue following other procedure; Y83.8 Other surgical procedures as the cause of abnormal reaction of the patient, or of later complication, without mention of misadventure at the time of the procedure; K80.20 Calculus of gallbladder without cholecystitis without obstruction; K55.1 Chronic vascular disorders of intestine; I13.0 Hypertensive heart and chronic kidney disease with heart failure and stage 1 through stage 4 chronic kidney disease, or unspecified chronic kidney disease; N18.4 Chronic kidney disease, stage 4 (severe); I50.9 Heart failure, unspecified; D63.1 Anemia in chronic kidney disease; D69.6 Thrombocytopenia, unspecified; G89.29 Other chronic pain; M54.5 Low back pain; M25.551 Pain in right hip; M79.671 Pain in right foot; J44.9 Chronic obstructive pulmonary disease, unspecified; I25.10 Atherosclerotic heart disease of native coronary artery without angina pectoris; I73.9 Peripheral vascular disease, unspecified; E78.5 Hyperlipidemia, unspecified; K21.9 Gastro-esophageal reflux disease without esophagitis; Z87.891 Personal history of nicotine dependence; Z95.5 Presence of coronary angioplasty implant and graft
CPT/HCPCS: 71046; 71250; 73502; 74176; 74185; 76705; 78227; 78582; 80048; 80053; 80069; 80076; 81003; 82272; 82570; 82728; 83540; 83690; 83735; 83880; 83883 90; 84100; 84156; 84165; 84466; 85014; 85018; 85025; 85027; 85610; 85730; 86021 90; 86038; 86235; 86850; 86870; 86900; 86901; 86920; 89190; 99281; 99285; A9537; A9540; A9567; G0378; J0881; J1940; J2270; J2405; J2805; J3010; J7030; P9016

== ENCOUNTER 2018-05-04 21:16 | Inpatient (IN) | payer OTHER ==
[~2018-05-04] VITALS: Ht 154.9 cm; Wt 71.5 kg
[~2018-05-04 21:16] MED LIST changes: +CHLORTHALIDONE25 MG PO; +DOCUSATE SODIU100 MG PO; +FAMOTIDINE20 MG PO; +NABI650T PO; +TYLENOL REGULA325 MG PO; +VITAMIN D2000 UNI1 PO
[2018-05-04 21:44] LABS: HEMATOCRIT 35.2 % (36.0-46.0); MCH 29.9 PG (29.0-34.0); MCHC 34.1 G/DL (30.0-36.0); MCV 87.8 FL (83-99); PLATELET COUNT 172 K/uL (156-360); RBC DIS.WIDTH-CV 16.9 % (11.8-14.6); RBC DIS.WIDTH-SD 54.6 % (39-53); WHITE BLOOD COUNT 12.7 K/uL (4.1-10.2)
[2018-05-04 21:50] LABS: ALBUMIN 3.6 g/dL (3.2-4.8)
[2018-05-04 21:51] LABS: CHLORIDE 108 mEq/L (99-109); POTASSIUM 3.2 mEq/L (3.7-5.4); SODIUM 141 mEq/L (136-147)
[2018-05-04 21:53] LABS: GLUCOSE 114 mg/dL (70-99)
[2018-05-04 21:55] LABS: TOTAL BILIRUBIN 0.9 mg/dL (0.0-1.0)
[2018-05-04 21:56] LABS: ALKALINE PHOSPHATASE 117 IU/L (3-129)
[2018-05-04 21:58] LABS: AST (GOT) 30 IU/L (2-34); UREA NITROGEN (BUN) 33 mg/dL (9-23)
[2018-05-04 22:00] LABS: ALT (GPT) 17 IU/L (3-49)
[2018-05-04 22:06] LABS: CREATININE 2.9 mg/dL (0.6-1.3); GFR ESTIMATE (CALCULATED) 17 mL/min/
[2018-05-04 22:41] LABS: RED BLOOD COUNT 4.01 M/uL (3.80-5.20)
[2018-05-05 08:08] VITALS: BP 165/72
[2018-05-05 08:28] LABS: HEMOGLOBIN 10.7 G/DL (11.9-15.5); MCH 28.8 PG (29.0-34.0); MCHC 32.4 G/DL (30.0-36.0); MCV 88.7 FL (83-99); PLATELET COUNT 157 K/uL (156-360); RBC DIS.WIDTH-CV 17.1 % (11.8-14.6); RBC DIS.WIDTH-SD 54.9 % (39-53); RED BLOOD COUNT 3.72 M/uL (3.80-5.20); WHITE BLOOD COUNT 9.6 K/uL (4.1-10.2)
[2018-05-05 09:00] LABS: C DIFF TOXIN POSITIVE (NEGATIVE)
[2018-05-05 09:00] LABS: CHLORIDE 107 MEQ/L (99-109); CREATININE 2.5 MG/DL (0.6-1.3); GFR ESTIMATE (CALCULATED) 20 mL/min/; GLUCOSE 108 mg/dL (70-99); MAGNESIUM 1.7 mg/dl (1.3-2.7); POTASSIUM 3.3 MEQ/L (3.7-5.4); SODIUM 141 MEQ/L (136-147); UREA NITROGEN (BUN) 31 mg/dL (9-23)
[2018-05-05 12:06] VITALS: BP 117/54
[2018-05-05 16:26] VITALS: BP 142/63
[2018-05-05 20:56] VITALS: BP 156/68
[2018-05-06] VITALS (7 sets, daily range): BP systolic 130–187; BP diastolic 63–86
[2018-05-06 05:46] LABS: BASOPHIL (%) 0.4 % (0-1); EOSINOPHIL (%) 3.2 % (0-5); EOSINOPHIL COUNT 0.3 K/uL (0-0.3); HEMATOCRIT 30.1 % (36.0-46.0); HEMOGLOBIN 9.7 G/DL (11.9-15.5); IMMATURE GRANULOCYTE (%) 0.6 % (0.0-0.7); LYMPHOCYTE (%) 22.6 % (15-42); LYMPHOCYTE COUNT 1.9 K/uL (1.0-2.8); MCHC 32.2 G/DL (30.0-36.0); MCV 90.1 FL (83-99); MONOCYTE (%) 5.9 % (3-12); MONOCYTE COUNT 0.5 K/uL (0-0.8); NEUTROPHIL (%) 67.3 % (45-76); NEUTROPHIL COUNT 5.6 K/uL (1.8-6.4); PLATELET COUNT 141 K/uL (156-360); RBC DIS.WIDTH-CV 17.2 % (11.8-14.6); RED BLOOD COUNT 3.34 M/uL (3.80-5.20); WHITE BLOOD COUNT 8.3 K/uL (4.1-10.2)
[2018-05-06 06:36] LABS: ALBUMIN 2.9 G/DL (3.2-4.8); ALKALINE PHOSPHATASE 71 IU/L (3-129); ALT (GPT) 11 IU/L (3-49); AST (GOT) 20 IU/L (2-34); CHLORIDE 108 MEQ/L (99-109); GLUCOSE 85 mg/dL (70-99); POTASSIUM 3.3 MEQ/L (3.7-5.4); SODIUM 141 MEQ/L (136-147); TOTAL PROTEIN 5.8 G/DL (6.4-8.3); UREA NITROGEN (BUN) 31 mg/dL (9-23)
[2018-05-06 06:38] LABS: GFR ESTIMATE (CALCULATED) 16 mL/min/; TOTAL BILIRUBIN 0.6 MG/DL (0.0-1.0)
[2018-05-06] MEDS ORDERED: TYLENOL EXTRA500 MG PO (13:12)
[2018-05-06] MEDS ORDERED: VITAMIN D31000 UNI2 PO (13:12)
[2018-05-06] MEDS ORDERED: COLACE100 MG PO (13:13)
[2018-05-06] MEDS ORDERED: APRESOLINE100 MG PO (13:14)
[2018-05-07] VITALS (8 sets, daily range): BP systolic 118–172; BP diastolic 54–88
[2018-05-07 06:10] LABS: CHLORIDE 110 MEQ/L (99-109); CREATININE 2.7 MG/DL (0.6-1.3); GFR ESTIMATE (CALCULATED) 18 mL/min/; GLUCOSE 91 mg/dL (70-99); POTASSIUM 3.9 MEQ/L (3.7-5.4); SODIUM 139 MEQ/L (136-147); UREA NITROGEN (BUN) 28 mg/dL (9-23)
[2018-05-08 05:19] VITALS: BP 138/64
[2018-05-08 07:25] VITALS: BP 161/70
[2018-05-08] MEDS ORDERED: MIRTAZAPINE7.5 MG PO (11:09)
[2018-05-08] MEDS ORDERED: CHOLESTYRAMINE P4 GM PO (11:09)
[2018-05-08] MEDS ORDERED: VANCOMYCIN125 MG/2.5 PO (11:09)
[2018-05-08 11:49] VITALS: BP 131/61
[2018-05-08] MEDS ORDERED: VANCOMYCIN HCL250 MG PO (16:09)
== END 2018-05-08 15:08 | disposition home or self-care (01) | DRG 372 ==
LOC: EME 21:16 → EDOF 05-05 02:52 → ENRESERV 05-05 02:54 → 4EAST 05-05 04:20 → CANRESERV 05-06 10:27 → ENRESERV 05-06 10:27 → 4EAST 05-08 15:08
PROVIDERS: Hospitalist; Internal Medicine; Physician Assistant Medical
DX: A04.72 Enterocolitis due to Clostridium difficile, not specified as recurrent (principal); I16.1 Hypertensive emergency; I25.5 Ischemic cardiomyopathy; L89.152 Pressure ulcer of sacral region, stage 2; I50.22 Chronic systolic (congestive) heart failure; E87.2 Acidosis; I65.29 Occlusion and stenosis of unspecified carotid artery; I13.0 Hypertensive heart and chronic kidney disease with heart failure and stage 1 through stage 4 chronic kidney disease, or unspecified chronic kidney disease; I25.10 Atherosclerotic heart disease of native coronary artery without angina pectoris; D53.9 Nutritional anemia, unspecified; G89.29 Other chronic pain; N18.4 Chronic kidney disease, stage 4 (severe); F11.20 Opioid dependence, uncomplicated; R45.851 Suicidal ideations; E78.5 Hyperlipidemia, unspecified; I77.4 Celiac artery compression syndrome; F43.21 Adjustment disorder with depressed mood; Z79.82 Long term (current) use of aspirin; Z82.5 Family history of asthma and other chronic lower respiratory diseases; Z87.891 Personal history of nicotine dependence; Z95.5 Presence of coronary angioplasty implant and graft; Z98.1 Arthrodesis status
CPT/HCPCS: 70450; 74176; 80048; 80053; 81003; 82948; 83735; 85025; 85027; 87493; 99281; 99285; A6214; A6260; J0360; J1644; J2405; J2765; J3010; J3480; J7040; J7120